=== PATIENT | female | born 1930 | race African-American/Black ===

== ENCOUNTER → 2017-02-18 | Day surgery (SDC) | payer MEDICARE, BC ==
[~2017-02-18] MED LIST: ACETAMINOPHEN 1000 MG/100 ML VIAL IV ONE; ACETAMINOPHEN/HYDROcodone 325 MG/5 MG TAB ONE; ADVA100A INH; AMLO5TAB2 PO; ASPI-156 PO; BUPIVACAINE/EPINEPHRINE 0.5% PF 30 ML VIAL ONE; HYDR-3516 PO; LACTATED RINGER'S 1000 ML INJ 1,000 ML ONE; LEVO.1 PO; LIDOCAINE 1%/EPINEPHrine 1:100,000 SOLN 20 ML VIAL ONE; METO50TA PO; NEOMYCIN/POLYMYXIN/BACITRACIN OINT 15 GM TUBE ONE; ONDANSETRON HCL 4 MG/2 ML VIAL IV PUSH ONE; PLAV75TA29 PO; PROPOFOL 100 MG/10 ML INJ IV ONE; ceFAZolin INJ 1,000 MG VIAL ONE
--- NOTE | 2017-02-18 15:15 | TN ---
cc: CORIE GOLD M.D. DATE OF SURGERY: 02/18/2017 PREOPERATIVE DIAGNOSIS 1. Persistent seroma, hematoma, left mastectomy site. 2. Persistent seroma, hematoma, right mastectomy site. POSTOPERATIVE DIAGNOSIS 1. Persistent seroma, hematoma, left mastectomy site. 2. Persistent seroma, hematoma, right mastectomy site. PROCEDURE 1. Excision of left seroma, hematoma with revision of scar left chest wall from previous mastectomy site. 2. Excision of right hematoma, seroma cavity with revision of lateral aspect of mastectomy scar. ANESTHESIA General. SURGEON Dr. Gold. [employer] COORDINATOR Dr. Donny Villatoro. INDICATIONS This is a pleasant elderly female who underwent bilateral mastectomies previously. She had good healing properties and then developed persistent seroma mainly on the left side that required numerous drainage procedures. Her tissue has become hypertrophied as well. Plans were made for excision of this persistent hematoma, seroma with revision of the scar for hypertrophied skin and subcutaneous tissue, in addition to excising the right side as well. PROCEDURE The patient was taken to the operating room and placed in the supine position. After anesthesia, time-out was done. She was given preoperative antibiotics. We first addressed the left side after prepping and draping. An elliptical incision is made along the previous mastectomy scar overlying the hypertrophied skin and subcutaneous tissue. This is sharply cut down and then using electrocautery device we create the superior and inferior flaps all the way down to the chest wall. We encounter a sizeable hematoma, seroma cavity with a rind around it. This capsule was removed with a combination of blunt dissection and the electrocautery device until the majority of it is removed, this is sent down to pathology. The skin and subcutaneous tissue and the rind of this cavity is removed to normal-appearing tissue. We then place a drain into the flaps and the flaps were then closed with a 3-0 Vicryl in a running fashion. The skin is reapproximated with a 4-0 Vicryl in a running fashion. The drain is secured with 3-0 Nylon. The right side is treated similarly. An elliptical incision is made incorporating the redundant tissue and where the hematoma, seroma cavity is located. This redundant tissue and the hematoma, seroma cavity is excised. The rind is excised. This one had about 100 ccs of fluid contained within it. The majority of the rind is excised up to the axillary region where it is cauterized to stimulate wound healing. Drain is placed into this cavity as well and the deep layer is closed with a 3-0 Vicryl and skin is closed with a 4-[address] Villatoro assisted on this case to expedite the closure of the wound so the patient would not be under anesthesia for an inordinate amount of time. He closed the left side of the mastectomy revision while I was working on the right side and this expedited the patient's care and minimized her anesthesia time. MD SENTHIL Chavez/JOSEF /2:09 PM /2:45 PM
== END | disposition home or self-care (01) ==
LOC: ESDC 07:37
PROVIDERS: ATTEND Surgery
DX: L76.32 Postprocedural hematoma of skin and subcutaneous tissue following other procedure (principal); L90.5 Scar conditions and fibrosis of skin; Z85.3 Personal history of malignant neoplasm of breast
CPT/HCPCS: 00400; 10140; 13101; 13102; 88305; J0131; J0690; J2405; J3010; J7120; 88307

== ENCOUNTER 2018-02-05 14:50 | Emergency (ER) | payer MEDICARE, BC ==
[~2018-02-05] VITALS: Ht 175.3 cm; Wt 88.6 kg
[~2018-02-05 14:50] MED LIST changes: -ACETAMINOPHEN 1000 MG/100 ML VIAL IV ONE; -ACETAMINOPHEN/HYDROcodone 325 MG/5 MG TAB ONE; -BUPIVACAINE/EPINEPHRINE 0.5% PF 30 ML VIAL ONE; -LACTATED RINGER'S 1000 ML INJ 1,000 ML ONE; -LIDOCAINE 1%/EPINEPHrine 1:100,000 SOLN 20 ML VIAL ONE; -NEOMYCIN/POLYMYXIN/BACITRACIN OINT 15 GM TUBE ONE; -ONDANSETRON HCL 4 MG/2 ML VIAL IV PUSH ONE; -PROPOFOL 100 MG/10 ML INJ IV ONE; -ceFAZolin INJ 1,000 MG VIAL ONE
[2018-02-05 15:11] VITALS: BP 175/81; PULSE 67; RESP 16; TEMP 99; O2SAT 98
[2018-02-05 17:45] VITALS: BP_SYST 180; BP_SYST 207; BP_DIAS 101; BP_DIAS 86; PULSE 74; RESP 18; O2SAT 100
[2018-02-05] MEDS ORDERED: SODIUM CHLORIDE 0.9% FLUSH 10 ML FLUSH IVF PRN (17:45)
[2018-02-05] MEDS ORDERED: ASPI-516 PO (17:46)
[2018-02-05] MEDS ORDERED: OLME0.09 PO (17:48)
[2018-02-05] MEDS ORDERED: OXYB5TAB8 PO (17:49)
[2018-02-05 17:50] VITALS: RESP 17; O2SAT 100
[2018-02-05] MEDS ORDERED: cloNIDine HCL 0.1 MG TAB PO ONE (18:30)
--- NOTE | 2018-02-05 18:47 | RADRPT ---
EXAM DATE/TIME: 02/05/2018 17:47 [facility] COMPARISON: No previous studies available for comparison. INDICATIONS : Chest pain. MEDICAL HISTORY : Cardiovascular disease. SURGICAL HISTORY : Coronary artery stent. ENCOUNTER: Initial ACUITY: 3 days PAIN SCORE: 7/10 LOCATION: Bilateral chest FINDINGS: A single view of the chest demonstrates the lungs to be symmetrically aerated without evidence of mas s, infiltrate or effusion. The cardiomediastinal contours are unremarkable. Osseous structures are intact. CONCLUSION: No acute disease. Chris Giraldo MD FACR on February 05, 2018 at 18:44 Board Certified Radiologist. This report was verified electronically.
[2018-02-05 19:15] LABS: BASOPHIL # 0.1 TH/MM3 (0-0.2); EOSINOPHIL # 0.2 TH/MM3 (0-0.4); EOSINOPHIL % 3.2 % (0.0-4.0); HEMATOCRIT 35.8 % (35.0-46.0); HEMOGLOBIN 11.8 GM/DL (11.6-15.3); LYMPH % 24.9 % (9.0-44.0); LYMPHOCYTE # 1.5 TH/MM3 (1.0-4.8); MEAN CELL VOLUME 87.5 FL (80.0-100.0); MEAN CORPUSCULAR HEMOGLOBIN 28.8 PG (27.0-34.0); MEAN CORPUSCULAR HGB CONC 32.9 % (32.0-36.0); MEAN PLATELET VOLUME 7.5 FL (7.0-11.0); MONO % 5.9 % (0.0-8.0); MONOCYTE # 0.4 TH/MM3 (0-0.9); PLATELET COUNT 247 TH/MM3 (150-450); RED BLOOD COUNT 4.09 MIL/MM3 (4.00-5.30); RED CELL DISTRIBUTION WIDTH 14.7 % (11.6-17.2); WHITE BLOOD COUNT 6.2 TH/MM3 (4.0-11.0)
[2018-02-05 19:16] LABS: PROTHROMBIN TIME - PATIENT 10.2 SEC (9.8-11.6)
[2018-02-05 19:31] VITALS: BP 180/90; PULSE 70; RESP 16; O2SAT 100
[2018-02-05 19:48] LABS: ALBUMIN 3.6 GM/DL (3.4-5.0); AST (GOT) 21 U/L (15-37); BICARBONATE 25.1 MEQ/L (21.0-32.0); BLOOD UREA NITROGEN 13 MG/DL (7-18); CALCIUM 9.9 MG/DL (8.5-10.1); CHLORIDE 108 MEQ/L (98-107); CREATININE 0.93 MG/DL (0.50-1.00); GLOMERULAR FILTRATION RATE 69 ML/MIN (>89); GLUCOSE,RANDOM 79 MG/DL (74-106); MAGNESIUM 2.1 MG/DL (1.5-2.5); SODIUM (NA) 139 MEQ/L (136-145)
[2018-02-05 19:53] LABS: ALKALINE PHOSPHATASE 68 U/L (45-117); ALT (GPT) 18 U/L (10-53); TOTAL BILIRUBIN ADULT 0.3 MG/DL (0.2-1.0); TOTAL PROTEIN 7.2 GM/DL (6.4-8.2); TROPONIN I LESS THAN 0.02 NG/ML (0.02-0.05)
[2018-02-05] MEDS ORDERED: NITR1SUB3 SL (21:23)
--- NOTE | 2018-02-05 21:23 | PD ---
HPI Chief Complaint: Chest Pain Time Seen by Provider: 17:36 Travel History International Travel<30 days: No Contact w/Intl Traveler<30days: No Traveled to known affect area: No History of Present Illness HPI 87-year-old female that presents to the ED for evaluation of possible chest complaint. Per patient she has had chest discomfort since yesterday. Per patient comes and goes. Per patient he feels more like gas on her chest. Per patient he feels like she cannot pass the gas. It almost feels like she has to relieve the pressure to get rid of this discomfort. She denies any fevers chills or sweats. Per patient she is concerned mainly because more than 10 years ago she had similar symptoms in she was found to have cardiac disease and had a stent. Per patient she has had [address] Rodriges. Last time in 2010. Per patient she follows very closely with him and actually saw him just a few weeks ago. Per patient she has had no issues. No recent travel. No urinary or bowel movement issues. She is currently pain-free and she has not had any pain since being here. No shortness of breath. Multiple allergies to different medications. Per patient she is only concern about the similarity of the pain from before. PFSH Past Medical History Hx Anticoagulant Therapy: Yes (PLAVIX) Arthritis: Yes Asthma: No Autoimmune Disease: No Blood Disorders: No Heart Rhythm Problems: No Cancer: Yes (BREAST RIGHT) Cardiovascular Problems: Yes (HTN) High Cholesterol: Yes Chemotherapy: No Chest Pain: Yes Congestive Heart Failure: No COPD: Yes Cerebrovascular Accident: No Diabetes: No Diminished Hearing: No Endocrine: Yes GERD: No Glaucoma: No Genitourinary: No Headaches: No Hepatitis: No Hiatal Hernia: No Hypertension: Yes Immune Disorder: No Kidney Stones: No Musculoskeletal: Yes (SPINAL STENOSIS) Neurologic: No Psychiatric: No Reproductive: No Respiratory: Yes (COPD) Migraines: No Myocardial Infarction: No Radiation Therapy: No Renal Failure: No Seizures: No Sleep Apnea: No Thyroid Disease: Yes Ulcer: No Tetanus Vaccination: > 5 Years Influenza Vaccination: No ?: Not Menopausal: Yes : 3 Para: 3 Past Surgical History Abdominal Surgery: Yes (UMBIL HERNIA REPAIR) AICD: No Appendectomy: No Arteriovenous Shunt: No Body Medical Devices: 5 CARDIAC STENT, LEFT BIG TOE Cardiac Surgery: Yes (CARDIAC CATH. WITH STENT 2003) Cholecystectomy: No Ear Surgery: No Endocrine Surgery: Yes (THYROIDECTOMY 1955 AND 1992) Eye Surgery: No Genitourinary Surgery: No Gynecologic Surgery: No Insulin Pump: No Joint Replacement: Yes (BILAT HIPS) Oral Surgery: Yes (TONSILLECTOMY) Pacemaker: No Thoracic Surgery: No Other Surgery: Yes Social History Alcohol Use: No Tobacco Use: No (quit 1995) Substance Use: No Allergies-Medications (Allergen,Severity, Reaction): Coded Allergies: crab (Verified Allergy, Severe, hives, 02/05/18) shellfish derived (Verified Allergy, Severe, hives, 02/05/18) shrimp (Verified Allergy, Severe, hives, 02/05/18) diatrizoate meglumine (Verified Allergy, Unknown, hives, 02/05/18) gadobenic acid (Verified Allergy, Unknown, hives, 02/05/18) gadodiamide (Verified Allergy, Unknown, hives, 02/05/18) gadoteridol (Verified Allergy, Unknown, hives, 02/05/18) iodixanol (Verified Allergy, Unknown, hives, 02/05/18) iohexol (Verified Allergy, Unknown, hives, 02/05/18) Reported Meds & Prescriptions Reported Meds & Active Scripts Active Reported Ditropan (Oxybutynin Chloride) 5 Mg Tab 5 Mg PO DAILY Olmesartan 20 Mg Tab 20 Mg PO DAILY Aspirin 81 Mg Chew 325 Mg PO DAILY Advair Diskus Inh (Fluticasone-Salmeterol Inh) 100-50 Mcg/Blist Aer 1 Puff INH DAILY Rinse mouth after use. Plavix (Clopidogrel Bisulfate) 75 Mg Tab 75 Mg PO DAILY Metoprolol Tartrate 50 Mg Tab 25 Mg PO DAILY Synthroid (Levothyroxine Sodium) 100 Mcg Tab 75 Mcg PO DAILY Amlodipine (Amlodipine Besylate) 5 Mg Tab 5 Mg PO DAILY Review of Systems Except as stated in HPI: all other systems reviewed are Neg Physical Exam Narrative GENERAL: SKIN: Warm and dry. HEAD: Atraumatic. Normocephalic. EYES: Pupils equal and round. No scleral icterus. No injection or drainage. ENT: No nasal bleeding or discharge. Mucous membranes pink and moist. Tongue is midline. No uvula deviation. NECK: Trachea midline. No JVD. CARDIOVASCULAR: Regular rate and rhythm. No murmurs, S3, S4. RESPIRATORY: No accessory muscle use. Clear to auscultation. Breath sounds equal bilaterally. GASTROINTESTINAL: Abdomen soft, non-tender, nondistended. Hepatic and splenic margins not palpable. MUSCULOSKELETAL: Extremities without clubbing, cyanosis, or edema. No obvious deformities. Full range of motion of the upper and lower extremities bilaterally. 2+ pulses bilaterally. NEUROLOGICAL: Awake and alert. No obvious cranial nerve deficits. Motor grossly within normal limits. Five out of 5 muscle strength in the arms and legs. Normal speech. PSYCHIATRIC: Appropriate mood and affect; insight and judgment normal. Data Data Last Documented VS Vital Signs Date Time Temp Pulse Resp B/P (MAP) Pulse Ox O2 Delivery O2 Flow Rate FiO2 02/05/18 19:31 70 16 180/90 (120) 100 Room Air 02/05/18 15:11 99.0 Orders Orders Electrocardiogram (02/05/18 ) Electrocardiogram (02/05/18 17:37) Ckmb (Isoenzyme) Profile (02/05/18 17:37) Complete Blood Count With Diff (02/05/18 17:37) Comprehensive Metabolic Panel (02/05/18 17:37) Magnesium (Mg) (02/05/18 17:37) Prothrombin Time / Inr (Pt) (02/05/18 17:37) Act Partial Throm Time (Ptt) (02/05/18 17:37) Troponin I (02/05/18 17:37) Lipase (02/05/18 17:37) Chest, Single Ap (02/05/18 17:37) Ecg Monitoring (02/05/18 17:37) Bilateral Bp Monitoring (02/05/18 17:37) Iv Access Insert/Monitor (02/05/18 17:37) Oximetry (02/05/18 17:37) Oxygen Administration (02/05/18 17:37) Sodium Chloride 0.9% Flush (Ns Flush) (02/05/18 17:45) Clonidine (Catapres) (02/05/18 18:30) CKMB (02/05/18 17:14) CKMB% (02/05/18 17:14) Electrocardiogram (02/05/18 20:49) Electrocardiogram (02/05/18 23:49) Ed Discharge Order (02/05/18 21:10) Labs Laboratory Tests Test 02/05/18 17:14 White Blood Count 6.2 TH/MM3 Red Blood Count 4.09 MIL/MM3 Hemoglobin 11.8 GM/DL Hematocrit 35.8 % Mean Corpuscular Volume 87.5 FL Mean Corpuscular Hemoglobin 28.8 PG Mean Corpuscular Hemoglobin Concent 32.9 % Red Cell Distribution Width 14.7 % Platelet Count 247 TH/MM3 Mean Platelet Volume 7.5 FL Neutrophils (%) (Auto) 65.0 % Lymphocytes (%) (Auto) 24.9 % Monocytes (%) (Auto) 5.9 % Eosinophils (%) (Auto) 3.2 % Basophils (%) (Auto) 1.0 % Neutrophils # (Auto) 4.0 TH/MM3 Lymphocytes # (Auto) 1.5 TH/MM3 Monocytes # (Auto) 0.4 TH/MM3 Eosinophils # (Auto) 0.2 TH/MM3 Basophils # (Auto) 0.1 TH/MM3 CBC Comment DIFF FINAL Differential Comment Prothrombin Time 10.2 SEC Prothromb Time International Ratio 1.0 RATIO Activated Partial Thromboplast Time 22.4 SEC Blood Urea Nitrogen 13 MG/DL Creatinine 0.93 MG/DL Random Glucose 79 MG/DL Total Protein 7.2 GM/DL Albumin 3.6 GM/DL Calcium Level 9.9 MG/DL Magnesium Level 2.1 MG/DL Alkaline Phosphatase 68 U/L Aspartate Amino Transf (AST/SGOT) 21 U/L Alanine Aminotransferase (ALT/SGPT) 18 U/L Total Bilirubin 0.3 MG/DL Sodium Level 139 MEQ/L Potassium Level 4.3 MEQ/L Chloride Level 108 MEQ/L Carbon Dioxide Level 25.1 MEQ/L Anion Gap 6 MEQ/L Estimat Glomerular Filtration Rate 69 ML/MIN Total Creatine Kinase 187 U/L Creatine Kinase MB 2.5 NG/ML Troponin I LESS THAN 0.02 NG/ML Lipase 172 U/L [facility] Medical Decision Making Medical Screen Exam Complete: Yes Emergency Medical Condition: Yes Medical Record Reviewed: Yes Interpretation(s) CBC & BMP Diagram 02/05/18 17:14 Total Protein 7.2, Albumin 3.6, Calcium Level 9.9, Magnesium Level 2.1, Alkaline Phosphatase 68, Aspartate Amino Transf (AST/SGOT) 21, Alanine Aminotransferase (ALT/SGPT) 18, Total Bilirubin 0.3 EKG shows sinus rhythm with no sign of acute ischemia or arrhythmia read by me and attending. Troponin and CK-MB negative. Last Impressions Chest X-Ray 02/05/18 [id number] Signed Impressions: Service Date/Time: Monday, February 05, 2018 17:47 - CONCLUSION: No acute disease. Chris Giraldo MD FACR Differential Diagnosis Chest pain versus atypical chest pain versus gas pain versus normal exam versus angina Narrative Course 87-year-old female that presents to the ED for evaluation of chest pain. Patient was properly examined and was found to have signs and symptoms somewhat concerning for ACS. Does appear to be somewhat typical. She does complain that it feels similar to the previous episode. She also tells me that she does not want to stay in the hospital. Labs and imaging were done. EKG and initial labs were essentially unremarkable. No sign of acute ischemic event. No sign of on any other disease. At this time patient was reassured. I did offer admission to the chest pain center but she prefers to speak with her doctor as she does not want to stay unless he wants her to stay. I spoke with Dr. Coles who is on-call for Dr. Rodriges and explained the findings and symptoms. Per him patient can be discharged home with anti-angina medications as well as close follow-up with Dr. Rodriges. This was told to the patient who agrees with plan. Patient was still offered admission to the chest pain center which she declined. She understands reasons to come back. She will begin a short prescription for nitroglycerin. She was told that if anything worsens she is to come back and she understands this. Follow-up with PCP. See ED if worsening symptoms. Diagnosis Primary Impression: Atypical chest pain Patient Instructions: General Instructions Additional Instructions: Follow-up with Dr. Rodriges on Thursday. Anything changes for the symptoms come back come back to the ED. See ED if worsening symptoms. Follow-up with PCP. Med/Other Pt SpecificInfo: Prescription(s) given Disposition: 01 DISCHARGE HOME Condition: Stable Magdiel Allen Feb 05, 2018 21:23
--- NOTE | 2018-02-06 19:39 | EKG ---
Date Performed: 02/05/2018 Time Performed: 15:26:35 PTAGE: 87 years EKG: Sinus rhythm WITH OCCASIONAL SUPRAVENTRICULAR PREMATURE COMPLEXES AND WANDERING ATRIAL PACEMAKER LEFT AXIS DEVIAT ION RIGHT BUNDLE BRANCH BLOCK Compared to previous tracing, the wandering atrial pacemaker is new, ot herwise no significant change ABNORMAL ECG PREVIOUS TRACING : 10/24/2016 07.09 DOCTOR: Lon Fernandez Interpretating Date/Time 02/06/2018 19:38:17
== END 2018-02-05 21:54 | disposition home or self-care (01) ==
LOC: NEPE 14:50
DX: R07.89 Other chest pain (principal); R94.31 Abnormal electrocardiogram [ECG] [EKG]; I10 Essential (primary) hypertension; E78.00 Pure hypercholesterolemia, unspecified; J44.9 Chronic obstructive pulmonary disease, unspecified; M19.90 Unspecified osteoarthritis, unspecified site; Z85.3 Personal history of malignant neoplasm of breast; Z95.5 Presence of coronary angioplasty implant and graft; Z87.891 Personal history of nicotine dependence
CPT/HCPCS: 71045; 80053; 82550; 82552; 83690; 83735; 84484; 85025; 85610; 85730; 93005; 99285